=== PATIENT | male | born 1985 | race Caucasian/White ===

== ENCOUNTER 2017-02-05 11:17 | Emergency (ER) | payer OTHER ==
[~2017-02-05] VITALS: Wt 90.7 kg
[~2017-02-05 11:17] MED LIST: AMOXICILLIN500 MG PO; ANAPROX DS550 MG PO; ANTIBIOTIC O500 U/GM TP; ATIVAN0.5 MG PO; AUGMENTIN 875 M1 TAB PO; BENTYL10 MG PO; CATAFLAM50 MG PO; CLARITIN10 MG PO; CLEOCIN150 MG PO; ERYTHROMYCIN250 MG PO; FLAGYL500 MG PO; FLEXERIL10 MG PO; FLEXERIL5 MG PO; HYDROCODONE BIT1 T11 PO; LOMOTIL 0.025 M1 TA1 PO; MEDROL DOSEPAK4 MG PO; MIRALAX POWDER17 G1 PO; MOTRIN600 MG PO; MOTRIN800 MG PO; NAPROSYN500 MG PO; NKHM; NORCO 325 MG-51 TAB PO; PERIDEX 480 ML480 ML PO; PREDNICOT20 MG PO; ROBAXIN750 MG PO; TESSALON PERLE200 MG PO; TRAMADOL HCL50 MG PO; ULTRAM50 MG PO; VICODIN 5/500 505 MG PO; VICODIN 500 MG-1 TAB PO; VICODIN ES 7501 TAB PO; ZITHROMAX Z PA250 MG PO; ZITHROMAX250 MG PO; ZOFRAN ODT4 MG SL; ZOFRAN4 MG PO; Zofran4 MG PO
[2017-02-05] MEDS ORDERED: PRILOSEC10 MG/Pack PO (11:28)
[2017-02-05] MEDS ORDERED: ZOFRAN ODT4 MG SL (13:32)
[2017-02-05] MEDS ORDERED: IMODIUM A-D2 M3 PO (13:32)
== END 2017-02-05 13:36 | disposition home or self-care (01) ==
LOC: ED 11:17
DX: K52.9 Noninfective gastroenteritis and colitis, unspecified (principal); F17.210 Nicotine dependence, cigarettes, uncomplicated; Z79.899 Other long term (current) drug therapy; Z91.040 Latex allergy status

== ENCOUNTER → 2017-08-28 | Outpatient (CLI) | payer OTHER ==
[~2017-08-28] MED LIST changes: +IMODIUM A-D2 M3 PO; +PRILOSEC10 MG/Pack PO
== END | disposition home or self-care (01) ==
LOC: NM 06:50
DX: R10.13 Epigastric pain (principal)

== ENCOUNTER → 2017-12-13 | Day surgery (SDC) | payer OTHER ==
[~2017-12-13] VITALS: Ht 175.2 cm; Wt 99.8 kg
--- NOTE | ~2017-12-13 | CON ---
[place], [place] REPORT OF CONSULTATION NAME: NINI MARTINEZ WADENA CLINICT #: [id number] UNIT #: [id number] ROOM: DOCTOR: CURTIS CABALLERO MD BIRTHDATE: [birth year] DOS: 12/13/2017 PROCEDURES: 1. Esophagogastroduodenoscopy and biopsy. 2. Colonoscopy and biopsy. INDICATIONS: Dysphagia, GERD and chronic diarrhea. An informed consent was obtained from the patient after indication of procedures, the alternatives and potential complications were explained to him. PROCEDURE MEDICATIONS: Sedation was administered by Anesthesiology Department. Scope used for upper endoscopy was Olympus diagnostic adult upper endoscope GIF-180, that insertion was to the descending duodenum. For the colonoscopy, scope used was Olympus pediatric colonoscope variable stiffness GIF-180, that insertion was to the cecum, which was identified by the usual landmarks, appendiceal orifice, ileocecal valve and triangular fold, in addition to transillumination in the right lower quadrant. FINDINGS: After adequate sedation, the patient was placed in left lateral decubitus position. Upper endoscopy was performed first. The scope was introduced under direct visualization through the upper esophageal sphincter into the esophagus. Esophageal mucosa appeared normal with no ulcerations or strictures. Lower esophageal sphincter was identified at 38 cm from incisors. Normal appearing Z line. The stomach was then intubated. Gastric mucosa inspected. Severe gastritis was seen with no discrete ulcers or active bleeding. A CLOtest was performed from the gastric antrum and body. On retroflexed views in the fundus, a grade 1 sliding hiatal hernia was identified. Pylorus was intubated easily. The duodenal bulb and descending duodenum were within normal range. The scope was then withdrawn after the stomach was decompressed. We then proceeded with the colonoscopy. Rectal examination showed a diminished sphincter tone and no external hemorrhoids. The scope was introduced into the rectum and then advanced to the cecum with no difficulty. The prep was adequate in the left colon and suboptimal in the right colon. The colon mucosa appeared normal with no evidence of inflammation, ulceration, polyps or obstructing lesions. Random biopsies were obtained from the right and left colon to rule out microscopic colitis. Retroflexed views in the rectum were unremarkable. The scope was then withdrawn after the rectum was decompressed. The patient tolerated the procedures well. IMPRESSION: 1. Severe gastritis, CLOtest performed. 2. Small hiatal hernia. 3. Normal colon mucosa, random biopsies obtained. PLAN: We will review the histopathology and CLOtest results and treat the patient accordingly. Office followup will be scheduled in 1-2 weeks. [place], [place] REPORT OF CONSULTATION NAME: NINI MARTINEZ Ca UNIT #: [id number] ROOM: [facility] B[facility]TH[facility]: [birth year] CURTIS CABALLERO MD CM:CONSTR:REPORT OF CONSULTATION 0933 12/13/17 [id number] interface
[2017-12-13 08:39] VITALS: BP 130/83
[2017-12-13 09:37] VITALS: BP 121/74
[2017-12-13 09:52] VITALS: BP 124/84
[2017-12-13 10:05] VITALS: BP 124/84
== END ==
LOC: SDC 12-10 08:00
DX: K29.70 Gastritis, unspecified, without bleeding (principal); K44.9 Diaphragmatic hernia without obstruction or gangrene; K52.9 Noninfective gastroenteritis and colitis, unspecified; K21.9 Gastro-esophageal reflux disease without esophagitis; F31.9 Bipolar disorder, unspecified; F20.9 Schizophrenia, unspecified; K50.90 Crohn's disease, unspecified, without complications; F17.210 Nicotine dependence, cigarettes, uncomplicated; Z98.890 Other specified postprocedural states

== ENCOUNTER 2018-05-08 10:09 | Emergency (ER) | payer OTHER ==
[~2018-05-08] VITALS: Ht 175.2 cm; Wt 95.3 kg
[2018-05-08] MEDS ORDERED: SEPTDS PO (10:29)
[2018-05-23] MEDS ORDERED: BUSPAR5 MG PO (08:46)
[2018-05-26] MEDS ORDERED: IBU600 M1 PO (10:13)
== END 2018-05-08 10:37 | disposition home or self-care (01) ==
LOC: ED 10:09
DX: L02.415 Cutaneous abscess of right lower limb (principal); Z91.040 Latex allergy status; Z79.899 Other long term (current) drug therapy

== ENCOUNTER → 2019-01-08 | Outpatient (CLI) | payer OTHER ==
[~2019-01-08] MED LIST changes: +BUSPAR5 MG PO; +DICYCLOMINE HCL20 MG PO; +IBU600 M1 PO; +NEXIUM40 MG PO; +RISPERDAL1 M1 PO; +SEPTDS PO
== END | disposition home or self-care (01) ==
LOC: RAD 11:56
DX: M25.552 Pain in left hip (principal); M79.672 Pain in left foot; M54.5 Low back pain

== ENCOUNTER → 2019-05-19 | Day surgery (SDC) | payer OTHER ==
[~2019-05-19] VITALS: Ht 175.2 cm; Wt 99.8 kg
[2019-05-19 11:20] VITALS: BP 119/82
[2019-05-19 13:19] VITALS: BP 91/43
[2019-05-19 13:30] VITALS: BP 90/53
[2019-05-19 13:45] VITALS: BP 95/66
[2019-05-19 14:00] VITALS: BP 111/55
[2019-05-19 14:19] VITALS: BP 116/81
== END | disposition home or self-care (01) ==
LOC: SDC 05-14 01:23
DX: R22.42 Localized swelling, mass and lump, left lower limb (principal); F41.9 Anxiety disorder, unspecified; F17.210 Nicotine dependence, cigarettes, uncomplicated; Z79.899 Other long term (current) drug therapy; E66.01 Morbid (severe) obesity due to excess calories; Z88.8 Allergy status to other drugs, medicaments and biological substances; Z68.41 Body mass index [BMI] 40.0-44.9, adult; Z98.890 Other specified postprocedural states

== ENCOUNTER → 2020-01-11 | Outpatient (CLI) | payer OTHER | END | disposition home or self-care (01) | LOC: MRI 07:52 | DX: R56.1 Post traumatic seizures (principal); J32.2 Chronic ethmoidal sinusitis ==

== ENCOUNTER 2021-04-09 19:25 | Emergency (ER) | payer OTHER ==
[~2021-04-09] VITALS: Ht 175.2 cm; Wt 88.5 kg
[2021-04-09] MEDS ORDERED: Motrin,Rufen800 MG PO (23:24)
== END 2021-04-10 02:00 | disposition home or self-care (01) ==
LOC: ED 19:25
DX: M54.5 Low back pain (principal); F17.200 Nicotine dependence, unspecified, uncomplicated; Z91.040 Latex allergy status; Z79.899 Other long term (current) drug therapy; W18.09XA Striking against other object with subsequent fall, initial encounter; Y93.89 Activity, other specified; Y92.89 Other specified places as the place of occurrence of the external cause; Y99.8 Other external cause status

== ENCOUNTER 2021-07-05 08:33 | Inpatient (IN) | payer OTHER ==
[~2021-07-05] VITALS: Ht 175.3 cm; Wt 90.7 kg
[~2021-07-05 08:33] MED LIST changes: +Motrin,Rufen800 MG PO
[2021-07-05 08:43] VITALS: BP 129/80
[2021-07-05 09:32] LABS: BASO # 0.2 10*3/uL (0.0-0.1); BASO % 1.2 % (0.0-1.0); EOS # 0.4 10*3/uL (0.0-0.4); EOS % 2.6 % (1.0-4.0); HEMATOCRIT 48.7 % (42.0-52.0); LYMPH # 3.8 10*3/uL (1.3-4.4); LYMPH % 25.6 % (27.0-41.0); MEAN CELL VOLUME 90.4 fl (80.0-94.0); MEAN CORPUSCULAR HGB 29.7 pg (27.0-31.0); MEAN CORPUSCULAR HGB CONC 32.9 g/dl (33.0-37.0); MEAN PLATELET VOLUME 12.5 fl (9.6-12.3); MONO # 0.9 10*3/uL (0.1-1.0); MONO % 6.2 % (3.0-9.0); NEUT # 9.5 10*3/uL (2.3-7.9); NEUT % 64.1 % (47.0-73.0); PLATELET COUNT AUTOMATED 274 10*3/uL (130-400); RED BLOOD COUNT 5.39 10*6/uL (4.50-5.90); RED CELL DISTRI WIDTH 13.7 % (0-14.5); WHITE BLOOD COUNT 14.8 10*3/uL (4.8-10.8)
[2021-07-05 09:50] LABS: ALBUMIN 3.8 gm/dl (3.1-4.5); ALKALINE PHOSPHATASE 73 U/L (45-117); BUN 13 mg/dl (7-24); CHLORIDE 110 mmol/L (98-107); CREATININE 1.06 mg/dL (0.70-1.30); LIPASE 108 U/L (73-393); SGOT/AST 17 IU/L (3-35); SGPT/ALT 37 U/L (12-78); SODIUM 141 mmol/L (136-145); TOTAL PROTEIN 7.8 gm/dL (6.4-8.2)
[2021-07-05 09:51] LABS: TROPONIN I < 0.015 ng/ml (<0.045)
[2021-07-05 14:33] VITALS: BP 116/79
[2021-07-05 21:17] VITALS: BP 114/69
[2021-07-05 23:00] VITALS: BP 110/72
[2021-07-06] VITALS (7 sets, daily range): BP systolic 116–126; BP diastolic 59–73
[2021-07-06] MEDS ORDERED: FLUOXETINE HYDR20 M1 PO (05:13)
[2021-07-06] MEDS ORDERED: TOPIRAMATE50 M2 PO (05:14)
[2021-07-06] MEDS ORDERED: OLANZAPINE5 MG PO (05:14)
[2021-07-06 06:17] LABS: BASO # 0.1 10*3/uL (0.0-0.1); BASO % 1.6 % (0.0-1.0); EOS # 0.5 10*3/uL (0.0-0.4); HEMATOCRIT 46.7 % (42.0-52.0); LYMPH # 3.6 10*3/uL (1.3-4.4); LYMPH % 41.3 % (27.0-41.0); MEAN CORPUSCULAR HGB 30.6 pg (27.0-31.0); MEAN CORPUSCULAR HGB CONC 33.6 g/dl (33.0-37.0); MEAN PLATELET VOLUME 12.2 fl (9.6-12.3); MONO # 0.6 10*3/uL (0.1-1.0); MONO % 6.5 % (3.0-9.0); NEUT # 3.9 10*3/uL (2.3-7.9); NEUT % 44.3 % (47.0-73.0); PLATELET COUNT AUTOMATED 246 10*3/uL (130-400); RED BLOOD COUNT 5.13 10*6/uL (4.50-5.90); RED CELL DISTRI WIDTH 13.7 % (0-14.5); WHITE BLOOD COUNT 8.8 10*3/uL (4.8-10.8)
[2021-07-06 06:35] LABS: ALBUMIN 3.5 gm/dl (3.1-4.5); BUN 14 mg/dl (7-24); CHLORIDE 113 mmol/L (98-107); CREATININE 0.95 mg/dL (0.70-1.30); POTASSIUM 4.3 mmol/L (3.5-5.1); SGOT/AST 18 IU/L (3-35); SGPT/ALT 33 U/L (12-78); SODIUM 140 mmol/L (136-145)
[2021-07-06 06:39] LABS: ALKALINE PHOSPHATASE 65 U/L (45-117)
[2021-07-06 10:51] LABS: URINE AMPHETAMINES < 1000 (1000ng/ml); URINE BARBITURATES < 200 (200ng/ml); URINE BENZODIAZEPINES < 200 (200ng/ml); URINE CANNABINOIDS (THC) > 50 (50ng/ml); URINE COCAINE < 300 (300ng/ml); URINE METHADONE < 300 (300ng/ml); URINE OPIATES < 300 (300ng/ml)
[2021-07-06 11:17] LABS: URINE PHENCYCLIDINE < 25 (25ng/ml)
== END 2021-07-06 17:06 | disposition home or self-care (01) | DRG 204 ==
LOC: ED 08:33 → EDHOLD 12:05 → 4E 07-06 16:53
PROVIDERS: Emergency Medicine; Hospitalist; ADMIT Family Medicine; ATTEND Family Medicine
DX: R55 Syncope and collapse (principal); R00.1 Bradycardia, unspecified; R56.9 Unspecified convulsions; F44.81 Dissociative identity disorder; E87.8 Other disorders of electrolyte and fluid balance, not elsewhere classified; F41.9 Anxiety disorder, unspecified; F60.2 Antisocial personality disorder; F39 Unspecified mood [affective] disorder; F31.9 Bipolar disorder, unspecified; Z91.040 Latex allergy status; Z79.899 Other long term (current) drug therapy

== ENCOUNTER 2021-11-11 23:09 | Emergency (ER) | payer OTHER ==
[~2021-11-11 23:09] MED LIST changes: +FLUOXETINE HYDR20 M1 PO; +OLANZAPINE5 MG PO; +TOPIRAMATE50 M2 PO
[2021-11-11 23:33] LABS: BASO # 0.2 10*3/uL (0.0-0.1); BASO % 1.5 % (0.0-1.0); EOS # 0.4 10*3/uL (0.0-0.4); EOS % 2.8 % (1.0-4.0); HEMATOCRIT 52.8 % (42.0-52.0); LYMPH # 4.7 10*3/uL (1.3-4.4); LYMPH % 34.2 % (27.0-41.0); MEAN CELL VOLUME 89.6 fl (80.0-94.0); MEAN CORPUSCULAR HGB 30.1 pg (27.0-31.0); MEAN CORPUSCULAR HGB CONC 33.5 g/dl (33.0-37.0); MEAN PLATELET VOLUME 11.4 fl (9.6-12.3); MONO % 7.3 % (3.0-9.0); NEUT # 7.4 10*3/uL (2.3-7.9); NEUT % 53.7 % (47.0-73.0); PLATELET COUNT AUTOMATED 272 10*3/uL (130-400); RED BLOOD COUNT 5.89 10*6/uL (4.50-5.90); RED CELL DISTRI WIDTH 13.3 % (0-14.5); WHITE BLOOD COUNT 13.8 10*3/uL (4.8-10.8)
[2021-11-11 23:50] LABS: ALKALINE PHOSPHATASE 75 U/L (45-117); BUN 8 mg/dl (7-24); CHLORIDE 112 mmol/L (98-107); CPK 139 U/L (39-308); POTASSIUM 3.7 mmol/L (3.5-5.1); SGOT/AST 29 IU/L (3-35); SGPT/ALT 58 U/L (12-78); SODIUM 141 mmol/L (136-145); TOTAL PROTEIN 7.8 gm/dL (6.4-8.2)
[2021-11-11 23:54] LABS: ACETAMINOPHEN (TYLENOL) < 5.0 ug/ml (10-30); ETHYL ALCOHOL < 3.0 mg/dl (<3)
[2021-11-12 01:59] LABS: BILIRUBIN Negative (Negative); BLOOD Negative (Negative); CLARITY Clear (Clear); COLOR Yellow (Yellow); GLUCOSE Negative (Negative); KETONE Negative (Negative); LEUKO ESTERASE Negative (Negative); NITRITE Negative (Negative)
[2021-11-12 02:08] LABS: URINE AMPHETAMINES < 1000 (1000ng/ml); URINE BARBITURATES < 200 (200ng/ml); URINE BENZODIAZEPINES < 200 (200ng/ml); URINE CANNABINOIDS (THC) > 50 (50ng/ml); URINE COCAINE < 300 (300ng/ml); URINE METHADONE < 300 (300ng/ml); URINE OPIATES < 300 (300ng/ml)
[2021-11-12 02:14] LABS: URINE PHENCYCLIDINE < 25 (25ng/ml)
[2021-11-12 02:25] LABS: BACTERIA TRACE; RBC 0-2 rbc/hpf (0-2)
== END 2021-11-12 10:03 | disposition home or self-care (01) ==
LOC: ED 23:09
PROVIDERS: Internal Medicine
DX: F43.21 Adjustment disorder with depressed mood (principal); Z91.040 Latex allergy status; Z79.899 Other long term (current) drug therapy; Z87.891 Personal history of nicotine dependence

== ENCOUNTER 2022-02-18 22:47 | Emergency (ER) | payer OTHER ==
[~2022-02-18] VITALS: Ht 177.8 cm
[2022-02-18 23:25] LABS: BASO # 0.2 10*3/uL (0.0-0.1); BASO % 1.2 % (0.0-1.0); EOS # 0.1 10*3/uL (0.0-0.4); EOS % 0.4 % (1.0-4.0); HEMATOCRIT 46.3 % (42.0-52.0); LYMPH # 0.6 10*3/uL (1.3-4.4); LYMPH % 5.2 % (27.0-41.0); MEAN CELL VOLUME 87.7 fl (80.0-94.0); MEAN CORPUSCULAR HGB 30.3 pg (27.0-31.0); MEAN CORPUSCULAR HGB CONC 34.6 g/dl (33.0-37.0); MEAN PLATELET VOLUME 11.6 fl (9.6-12.3); MONO % 7.9 % (3.0-9.0); NEUT # 10.2 10*3/uL (2.3-7.9); NEUT % 84.6 % (47.0-73.0); PLATELET COUNT AUTOMATED 237 10*3/uL (130-400); RED BLOOD COUNT 5.28 10*6/uL (4.50-5.90); RED CELL DISTRI WIDTH 14.1 % (0-14.5); WHITE BLOOD COUNT 12.1 10*3/uL (4.8-10.8)
[2022-02-18 23:39] LABS: ALKALINE PHOSPHATASE 70 U/L (45-117); BUN 10 mg/dl (7-24); CHLORIDE 108 mmol/L (98-107); CREATININE 1.08 mg/dL (0.70-1.30); POTASSIUM 3.7 mmol/L (3.5-5.1); SGOT/AST 27 IU/L (3-35); SGPT/ALT 48 U/L (12-78); SODIUM 136 mmol/L (136-145); TOTAL PROTEIN 7.3 gm/dL (6.4-8.2)
[2022-02-19] MEDS ORDERED: TAMIFLU 75MG CA75 MG PO (00:27)
== END 2022-02-19 01:28 | disposition home or self-care (01) ==
LOC: ED 22:47
PROVIDERS: Internal Medicine
DX: J10.1 Influenza due to other identified influenza virus with other respiratory manifestations (principal); Z20.822 Contact with and (suspected) exposure to COVID-19; D72.829 Elevated white blood cell count, unspecified; E83.42 Hypomagnesemia; Z91.040 Latex allergy status; Z79.899 Other long term (current) drug therapy; Z87.891 Personal history of nicotine dependence

== ENCOUNTER → 2022-06-27 | Outpatient (CLI) | payer OTHER ==
[~2022-06-27] MED LIST changes: +PRILOSEC PO; +PROZAC20 MG PO; +TAMIFLU 75MG CA75 MG PO
== END | disposition home or self-care (01) ==
LOC: CARD 01:48
PROVIDERS: ATTEND Internal Medicine Cardiovascular Disease
DX: R07.89 Other chest pain (principal); R53.83 Other fatigue; R55 Syncope and collapse; R00.2 Palpitations; R42 Dizziness and giddiness; R00.1 Bradycardia, unspecified

== ENCOUNTER → 2022-07-18 | Outpatient (CLI) | payer OTHER | END | disposition home or self-care (01) | LOC: CARD 00:05 | PROVIDERS: ATTEND Internal Medicine Cardiovascular Disease | DX: R00.1 Bradycardia, unspecified (principal); R07.89 Other chest pain; R94.31 Abnormal electrocardiogram [ECG] [EKG]; R42 Dizziness and giddiness ==

== ENCOUNTER → 2023-11-13 | Outpatient (CLI) | payer OTHER | END | disposition home or self-care (01) | LOC: RAD 12:15 | PROVIDERS: ATTEND Internal Medicine | DX: S49.92XA Unspecified injury of left shoulder and upper arm, initial encounter (principal); M25.561 Pain in right knee; M54.2 Cervicalgia; M47.813 Spondylosis without myelopathy or radiculopathy, cervicothoracic region; M25.512 Pain in left shoulder; X58.XXXA Exposure to other specified factors, initial encounter; Y93.89 Activity, other specified; Y92.89 Other specified places as the place of occurrence of the external cause; Y99.8 Other external cause status ==

== ENCOUNTER 2024-01-02 11:40 | Emergency (ER) | payer OTHER ==
[~2024-01-02] VITALS: Ht 175.2 cm; Wt 90.7 kg
[2024-01-02] MEDS ORDERED: SODIUM CHLORIDE 0.9% 1,000 ML IV ONE (12:15)
[2024-01-02] MEDS ORDERED: ACETAMINOPHEN 325 MG TAB PO ONE (12:15)
[2024-01-02] MEDS ORDERED: diphenhydrAMINE hydrochloride 50 MG/ML VIAL IV ONE (12:15)
[2024-01-02] MEDS ORDERED: Metoclopramide Hydrochloride 10 MG/2 ML AMP IV ONE (12:15)
[2024-01-02] MEDS ORDERED: Ketorolac Tromethamine 15 MG/ML VIAL IV ONE (12:15)
[2024-01-02 12:33] LABS: BASO # 0.2 10*3/uL (0.0-0.1); EOS # 0.1 10*3/uL (0.0-0.4); EOS % 1.1 % (1.0-4.0); HEMATOCRIT 52.9 % (42.0-52.0); LYMPH % 26.4 % (27.0-41.0); MEAN CORPUSCULAR HGB 29.4 pg (27.0-31.0); MEAN CORPUSCULAR HGB CONC 32.7 g/dl (33.0-37.0); MEAN PLATELET VOLUME 11.5 fl (9.6-12.3); MONO # 0.9 10*3/uL (0.1-1.0); MONO % 11.8 % (3.0-9.0); NEUT # 4.4 10*3/uL (2.3-7.9); NEUT % 58.4 % (47.0-73.0); PLATELET COUNT AUTOMATED 225 10*3/uL (130-400); RED BLOOD COUNT 5.88 10*6/uL (4.50-5.90); WHITE BLOOD COUNT 7.6 10*3/uL (4.8-10.8)
[2024-01-02 12:57] LABS: BUN 8 mg/dl (9-23); CHLORIDE 104 mmol/L (98-107); POTASSIUM 4.1 mmol/L (3.4-5.1)
[2024-01-02 13:15] LABS: ACT PARTIAL THROMBO TIME 28.5 SECONDS (20.0-32.1)
== END 2024-01-02 14:10 | disposition home or self-care (01) ==
LOC: ED 11:40
PROVIDERS: Nurse Practitioner
DX: R51.9 Headache, unspecified (principal); R11.2 Nausea with vomiting, unspecified; H53.8 Other visual disturbances; F17.200 Nicotine dependence, unspecified, uncomplicated; Z91.040 Latex allergy status; Z79.899 Other long term (current) drug therapy